=== PATIENT | female | born 2005 | race Caucasian/White ===

== ENCOUNTER 2023-05-03 12:33 | Emergency (ER) | payer OTHER, SELFPAY ==
--- NOTE | 2023-05-03 12:40 | ED.NAVMDI ---
HPI - Nausea/Vomiting/Diarrhea General Chief complaint: Nausea/Vomiting/Diarrhea Stated complaint: Nausea Time Seen by Provider: 05/03/23 12:39 Source: patient Mode of arrival: ambulatory Limitations: no limitations History of Present Illness HPI Narrative: Patient is a 17-year-old female who presents with abdominal cramping, nausea, vomiting and diarrhea. Patient states initial symptoms or 5 days ago received multiple episodes of diarrhea and vomiting. Patient states symptoms resolved for a few days and then last night symptoms returned. Patient denies any chance of and states she was on her. At the start of symptoms. Denies any new foods or anyone else being sick around her. Related Data Allergies Allergy/AdvReac Type Severity Reaction Status Date / Time No Known Allergies Allergy Verified 05/03/23 12:47 Review of Systems Review of Systems: All systems reviewed & are unremarkable except as noted in HPI and below Constitutional: Constitutional: Denies body ache(s), Denies chills, Denies fatigue, Denies fever(s), Denies headache(s), Denies malaise and Denies weakness Eyes: Eyes: Denies blurry vision, Denies irritation and Denies loss of vision ENT: Denies otalgia, Denies headache(s), Denies nasal discharge, Denies sinus pain and Denies sore throat Cardiovascular: Cardiovascular: Denies chest pain, Denies irregular heart rhythm and Denies dyspnea Respiratory: Respiratory: Denies dyspnea Gastrointestinal: Gastrointestinal: Reports abdominal pain, Denies melena, Denies hematochezia, Reports diarrhea, Reports nausea and Reports vomiting Musculoskeletal: Musculoskeletal: Denies back pain, Denies myalgias and Denies arthralgias Integumentary/Breasts: Skin/Breast: Denies pruritus and Denies rash Neurologic: Denies headache(s), Denies loss of vision and Denies weakness Psychiatric: Psychiatric: Reports no additional psychiatric complaints Endocrine: Endocrine: Denies fatigue PMFSH Comments At time of signature, agree with nursing past medical, surgical, social and family history. There is no relevant family history pertinent to the presenting complaint. Exam Const: General: cooperative, healthy appearing, comfortable, no acute distress and well nourished Nutritional Appearance: well nourished Orientation/consciousness: patient oriented x3 Limitations: no limitations HENMT: Head: normal to inspection, normocephalic and atraumatic Ears: hearing grossly normal bilaterally and external ears normal Face/Nose/Sinus: Normal external nose present, normal facial exam and face symmetric Face and sinus: normal facial exam and face symmetric Mouth: Yes lip normal Eyes: General: appearance normal, both eyes and all related structures Alignment and Position: alignment normal and position normal Periorbital: periorbital findings normal Eyelids: eyelids normal Pupils: Equal, round and reactive pupils present EOM: EOMs intact bilaterally Neck: Neck: normal visual inspection, full ROM and supple Chest: Chest palpation & inspection: normal inspection of the chest Resp: Effort & Inspection: normal respiratory effort and able to speak in complete sentences Auscultation: clear to auscultation bilaterally Cardio: Rate: regular rate Rhythm: regular rhythm Heart sounds: S1 normal heart sound present and S2 normal heart sound present GI: Inspection: normal to inspection GI Palp: No abdominal tenderness, Yes Soft to palpation, No Tenderness to palpation present (GI), No Guarding due to palpation present (GI) and No Rebound tenderness present Auscultation: normal bowel sounds Rectal Exam: deferred Skin: General skin exam: normal color and no rashes or lesions noted Neuro: General: patient oriented x3 and moves all extremities Cranial nerves: Yes Equal, round and reactive pupils present Speech: normal speech Gait exam (Neuro): Normal gait present Extrem: General: normal to inspection, full ROM and no edema Psych: A
[2023-05-03 12:43] VITALS: BP 112/71; PULSE 94; RESP 16; TEMP 36.9; O2SAT 100
[2023-05-03 12:48] VITALS: BP 112/71; PULSE 94; RESP 16; TEMP 36.9; O2SAT 100
== END 2023-05-03 13:14 | disposition home or self-care (01) ==
PROVIDERS: Emergency Provider Nurse Practitioner Family
DX: K52.9 Noninfective gastroenteritis and colitis, unspecified (principal)
CPT/HCPCS: 99213; G0463